=== PATIENT | female | born 1995 | race Hispanic/Latino ===

== ENCOUNTER 2018-06-20 19:35 | Emergency (ER) | payer OTHER ==
[~2018-06-20] VITALS: Ht 165.1 cm; Wt 63.5 kg
[2018-06-20] MEDS ORDERED: BUPIVACAINE HCL 0.5% INJ 30 ML VIAL INJ ONE (19:45)
[2018-06-20] MEDS ORDERED: BUPIVACAINE HCL 0.5% 10ML MPF VIAL INJ ONE (19:46)
[2018-06-20] MEDS ORDERED: NEOMYCIN/POLYMYX/BACITR OINT 0.9 GM PKT TOP ONE (20:15)
[2018-06-20] MEDS ORDERED: LIDOCAINE HCL 1% LOCAL INJ 20 ML VIAL INJ ONE (20:30)
--- NOTE | 2018-06-20 20:47 | Diagnostic Imaging Report ---
HAND 3+ VIEWS RIGHT HISTORY: Slammed finger in car door, fourth digit. COMPARISON: None available. FINDINGS: Bones: Acute transverse mildly displaced fracture of the base of the fourth distal phalanx without intra-articular extension. Osseous alignment is within normal limits. Joints: The joint spaces are well-maintained. Soft tissues: Soft tissue swelling of the distal fourth digit. IMPRESSION: Mildly displaced fracture of the base of the fourth distal phalanx. Signed by: DR. Saul Mckinnon MD on 06/20/2018 8:44 PM
== END 2018-06-20 21:40 | disposition home or self-care (01) ==
LOC: ER 19:35
DX: S61.305A Unspecified open wound of left ring finger with damage to nail, initial encounter (principal); W23.1XXA Caught, crushed, jammed, or pinched between stationary objects, initial encounter; Y92.008 Other place in unspecified non-institutional (private) residence as the place of occurrence of the external cause
CPT/HCPCS: 11720; 64450; 73130; 99284; J2001

== ENCOUNTER 2020-12-01 14:38 | Emergency (ER) | payer MEDICARE, OTHER ==
[~2020-12-01] VITALS: Ht 165.1 cm; Wt 68.0 kg
[2020-12-01] MEDS ORDERED: HYDROCODONE/APAP 7.5MG-325MG 1 EA TAB PO ONE (15:00)
== END 2020-12-01 17:25 | disposition home or self-care (01) ==
LOC: ER 14:56
DX: M25.522 Pain in left elbow (principal); S50.02XA Contusion of left elbow, initial encounter; W22.03XA Walked into furniture, initial encounter; Y93.02 Activity, running; Y92.008 Other place in unspecified non-institutional (private) residence as the place of occurrence of the external cause
CPT/HCPCS: 99283